=== PATIENT | female | born 1950 | race Caucasian/White ===

== ENCOUNTER → 2018-06-22 | Outpatient (CLI) | payer MEDICARE, OTHER | END | disposition home or self-care (01) | LOC: RADPV 10:16 | PROVIDERS: ATTEND Internal Medicine Endocrinology, Diabetes & Metabolism | DX: N18.3 Chronic kidney disease, stage 3 (moderate) (principal) | CPT/HCPCS: 76770 ==

== ENCOUNTER → 2018-08-17 | Outpatient (CLI) | payer MEDICARE, OTHER ==
[2018-08-17 11:30] LABS: EOSINOPHILS % (AUTO) 3.9 % (1.0-6.0); HEMATOCRIT 35.5 % (36-46); HEMOGLOBIN 11.6 g/dL (12.0-16.0); LYMPHOCYTES # (AUTO) 1.6 K/uL (1.0-4.8); LYMPHOCYTES % (AUTO) 24.9 % (22.0-44.0); MEAN CORPUSCULAR HEMOGLOBIN 28.6 pg (26.0-34.0); MEAN CORPUSCULAR HGB CONC 32.5 G/dL (31.0-37.0); MEAN CORPUSCULAR VOLUME 88 fL (80-100); MONOCYTES # (AUTO) 0.6 K/uL (0.1-1.0); MONOCYTES % (AUTO) 10.3 % (2.0-9.0); NEUTROPHILS # (AUTO) 3.7 K/uL (1.8-7.7); NEUTROPHILS % (AUTO) 58.9 % (40.0-70.0); PLATELET COUNT (AUTO) 300 K/uL (150-450); RED BLOOD CELL COUNT(AUTO) 4.04 MIL/uL (4.00-5.20); RED CELL DISTRIBUTION WIDTH 15.5 % (11.5-14.5)
[2018-08-17 11:39] LABS: APPEARANCE,URINE CLEAR (CLEAR); BILIRUBIN,URINE NEGATIVE (NEGATIVE); GLUCOSE, URINE (UA) NEGATIVE (NEGATIVE); KETONES,URINE NEGATIVE (NEGATIVE); LEUKOCYTE ESTERASE ,URINE SMALL (NEGATIVE); NITRATE,URINE NEGATIVE (NEGATIVE); OCCULT BLOOD,URINE NEGATIVE (NEGATIVE); PH,URINE 6.5 (5.0-8.0); PROTEIN,URINE NEGATIVE (NEGATIVE); UROBILINOGEN,URINE 0.2 mg/dL (<=1.0)
[2018-08-17 11:42] LABS: ALBUMIN 3.6 g/dL (3.4-5.0); CALCIUM, TOTAL 10.5 mg/dL (8.8-10.5); CREATININE 1.11 mg/dL (0.60-1.30); PHOSPHORUS 3.1 mg/dL (2.5-4.9); POTASSIUM 4.3 mmol/L (3.5-5.1); URIC ACID 7.5 mg/dL (2.6-7.2)
[2018-08-17 11:57] LABS: BACTERIA,URINE Moderate /HPF (None Seen); RBC,URINE 0-2 /HPF (0-2); SQUAMOUS EPITHELIAL CELL,UR Few /LPF (None Seen)
[2018-08-17 12:09] LABS: CREATININE,URINE RANDOM 124.7 mg/dL (30.0-125.0); PROTEIN,URINE RANDOM 36 mg/dL (0-11.9)
[2018-08-18 04:06] LABS: IGM (IMMUNOFIXATION) 94 mg/dL (26-217)
[2018-08-19 02:20] LABS: FREE KAPPA LIGHT CHAINS,S 65.9 mg/L (3.3-19.4); FREE KAPPA/LAMBDA LT CHN RATIO 1.27 (0.26-1.65)
== END | disposition home or self-care (01) ==
LOC: LABPV 10:49
PROVIDERS: ATTEND Hospitalist
DX: N18.3 Chronic kidney disease, stage 3 (moderate) (principal); N20.0 Calculus of kidney; E78.5 Hyperlipidemia, unspecified; Z79.1 Long term (current) use of non-steroidal anti-inflammatories (NSAID)
CPT/HCPCS: 82306; 82570; 82784; 83883; 84155; 84156; 84165; 84550; 86038; 86334; 87086